=== PATIENT | female | born 1945 | race Caucasian/White ===

== ENCOUNTER 2016-06-19 08:42 | Emergency (ER) | payer MEDICARE, BC ==
[2016-06-19 08:59] VITALS: BP 149/71
--- NOTE | 2016-06-19 10:27 | UC ---
I, Tirso,Hank, scribed for Indu Marquez MD on 06/19/16 at 0957 . Skin Complaint HPI - HPI Summary HPI Summary: This 70 y/o female presents to [facility] for RUE upper arm laceration. Laceration occurred from "a stick sticking out" while pt was pruning her garden. Pt had it bandaged, but skin was torn off from the wound when pt took off bandage 2 days ago. Pt decided to come to Urgent Care today when she became concerned how the wound looked red, swollen, and draining. She rates discomfort 2/10. Negative fever. PMHx includes eosinophilic fasciitis for which she takes methotrexate and follows with a hospital technician in [place], Dr. Jacob, and glaucoma. Pt denies any hx of known MRSA. - History of Current Complaint Chief Complaint: UCWounds Stated Complaint: ARM WOUND Hx Obtained From: Patient Onset/Duration: Sudden Onset, Lasting Days, Still Present Skin Exposure Onset/Duration: Days Ago Timing: Constant Onset Severity: Moderate Current Severity: Moderate Pain Intensity: 2 Pain Scale Used: 0-10 Numeric Location: Other - right forearm Aggravating: Nothing Alleviating: Treatment SUPPORT ANALYST: - neosporin, bandaid Associated Signs & Symptoms: Positive: Drainage, Tenderness. Negative: Red Streaks, Joint Swelling - Allergy/Home Medications Allergies/Adverse Reactions: Allergies Allergy/AdvReac Type Severity Reaction Status Date / Time Scallops Allergy GI Upset Uncoded 06/19/16 08:59 Home Medications: Home Medications Acetazolamide 1 tab PO BID 06/19/16 [History Confirmed 06/19/16] Aspirin [Aspirin 81 MG TAB] 1 tab PO DAILY 06/19/16 [History Confirmed 06/19/16] Atorvastatin* [Lipitor 40 MG*] 1 tab PO DAILY 06/19/16 [History Confirmed ] Cetirizine HCl [Zyrtec Allergy 10 MG TAB] 1 tab PO DAILY 06/19/16 [History Confirmed 06/19/16] Diltiazem HCl [Dilt-Xr] 2 tab PO DAILY 06/19/16 [History Confirmed 06/19/16] Montelukast Sodium TAB* [Singulair 10 MG TAB*] 1 tab PO DAILY 06/19/16 [History Confirmed 06/19/16] Review of Systems Constitutional: Negative Skin: Other - Abrasion with erythema and drainage at RUE upper arm dorsal. Eyes: Negative ENT: Negative Respiratory: Negative Cardiovascular: Negative Gastrointestinal: Negative Genitourinary: Negative Motor: Negative Neurovascular: Negative Musculoskeletal: Negative Neurological: Negative Psychological: Negative All Other Systems Reviewed And Are Negative: Yes PMH/Surg Hx/FS Hx/Imm Hx Cardiovascular History Of: Reports: Hypertension - ON DAILY MEDS - Surgical History Surgical History: Yes Surgery Procedure, Year, and Place: YOUNG CHILDtonsilectomy. 1972 BILATERAL tubal CATIA. [address] [facility] [place]. 2009 RT EYE DETACHED RETINA NOEL. Bilateral eye Glaucoma surgery. Left eye Glaucoma valve. - Family History Known Family History: Positive: Cardiac Disease, Hypertension, Other - Crohn's dz to sister - Social History Alcohol Use: Daily Alcohol Amount: three times daily Substance Use Type: None Smoking Status (MU): Former Smoker Type: Cigarettes Amount Used/How Often: 1PPD 5 YRS Have You Smoked in the Last Year: No When Did the Patient Quit Smoking/Using Tobacco: 02/13/1968 - Immunization History Most Recent Tetanus Shot: Unknown Physical Exam Triage Information Reviewed: Yes Appearance: Well-Appearing, No Pain Distress Vital Signs: Initial Vital Signs Temp 97.5 F 06/19/16 08:50 Pulse 62 06/19/16 08:50 Resp 18 06/19/16 08:50 BP 149/71 06/19/16 08:50 Pulse Ox 97 06/19/16 08:50 Vital Signs Reviewed: Yes Eyes: Positive: Conjunctiva Clear ENT: Positive: Normal ENT inspection, Hearing grossly normal. Negative: Muffled /hoarse voice Neck: Positive: Supple Respiratory: Positive: Lungs clear, Normal breath sounds, No respiratory distress Cardiovascular: Positive: RRR, No Murmur, Pulses Normal, Brisk Capillary Refill Musculoskeletal: Positive: Strength Intact, ROM Intact Neurological: Positive: Alert, Muscle Tone Normal Psychological Exam: Normal Skin: Positive: Other - 0.5 original abrasion from "stick" on RUE dorsal forearm arm -- scabbed and dry. 7 cm of confluent erythema. 3cm abrasion within the erythema with sero sanguinous drainage. Course/Dx - Course Course Of Treatment: Allergies reviewed. Vital signs are reviewed and noted with elevated blood pressure of 149/71. PMHx does include HTN. - Differential Diagnoses - Skin Complaint Differential Diagnoses: Cellulitis, Contact Dermatitis, Lymphangitis - Diagnoses Provider Diagnoses: 1) Cellulitis with forearm abrasion 2) HTN under poor control Discharge - Discharge Plan Condition: Stable Disposition: HOME Prescriptions: Cephalexin CAP* [Keflex 500 CAP*] 500 mg PO QID #40 cap Patient Education Materials: Cellulitis (ED), Cephalexin (By mouth) Referrals: Erin Faulkner MD [Primary Care Provider] - 2 Days Additional Instructions: Return to urgent care if any new or worsening symptoms. The documentation as recorded by the Tirso hernandez Soohyun accurately reflects the service I personally performed and the decisions made by Jimmy sears Barbara J, MD.
== END 2016-06-19 10:00 | disposition home or self-care (01) ==
LOC: UCEAST 08:42
DX: L03.113 Cellulitis of right upper limb (principal); H40.9 Unspecified glaucoma; M35.4 Diffuse (eosinophilic) fasciitis; I10 Essential (primary) hypertension; Z91.013 Allergy to seafood; Z87.891 Personal history of nicotine dependence
CPT/HCPCS: 87070; 87077; 87186; 87205; 87640; 87641; 99212; G0463

== ENCOUNTER 2018-09-21 10:27 | Emergency (ER) | payer MEDICARE, BC ==
[2018-09-21 11:18] LABS: ABS Basophils 0.1 10^3/ul (0-0.2); ABS Eosinophils 0.3 10^3/ul (0-0.6); ABS Monocytes 0.7 10^3/ul (0-0.8); ABS Neutrophils 2.4 10^3/ul (1.5-7.7); Eosinophil % 5.3 %; Hematocrit 43 % (35-47); Hemoglobin 14.5 g/dL (12.0-16.0); Lymphocyte % 36.2 %; Mean Corpuscular HGB Conc 34 g/dL (31-36); Mean Corpuscular Hemoglobin 34 pg (27-31); Mean Corpuscular Volume 102 fL (80-97); Mean Platelet Volume 7.4 fL (7.4-10.4); Platelet Count 214 10^3/uL (150-450); Red Blood Count 4.25 10^6 /uL (3.70-4.87); Red Cell Distribution Width 15 % (10-15); White Blood Count 5.4 10^3/uL (3.5-10.8)
[2018-09-21 11:32] LABS: INR 0.9 (0.82-1.09)
[2018-09-21 11:35] LABS: Albumin 4.5 g/dL (3.2-5.2); Albumin/Globulin Ratio 1.7 (1-3); BUN/Creatinine Ratio 21.5 (8-20); Calcium 9.6 mg/dL (8.6-10.3); EGFR African American 108.1 (>60); EGFR Non-African American 89.3 (>60); Globulin 2.6 g/dL (2-4); Potassium 4.4 mmol/L (3.5-5.0); Total Bilirubin 0.3 mg/dL (0.2-1.0); Total Protein 7.1 g/dL (6.4-8.9)
--- NOTE | 2018-09-21 11:50 | ED ---
HPI Chest Pain - HPI Summary HPI Summary: This patient is a 73 year old F w hx HTN and HLD presenting to ED with a chief complaint of intermittent chest pressure since yesterday morning. The pressure went away yesterday but has since returned. The pressure started when she was getting out of bed. Denies exertional CP, SOB, hx OH or DVT/PE. The pressure radiates into the left arm above the elbow. Her left upper arm feels intermittently tingling and numb. She has had chest pain before, but not pressure. Patient follows up with a cutter and presser and had a negative echo in 2014 and also reports recent negative stress test. The patient rates the pain 0/ 10 in severity. Patient reported lightheadedness with her initial chest pain. - History of Current Complaint Chief Complaint: EDChestPainROMI Time Seen by Provider: 09/21/18 10:57 Hx Obtained From: Patient Onset/Duration: Started Days Ago - Yesterday , Still Present Timing: Intermittent Initial Severity: Mild Current Severity: Mild Pain Intensity: 0 Pain Scale Used: 0-10 Numeric Chest Pain Radiates: Yes Chest Pain Radiates To:: Arm - Left Character: Pressure/Squeezing Aggravating Factor(s): Nothing Alleviating Factor(s): Nothing Associated Signs and Symptoms: Positive: Lightheadedness, Other: - Left arm numbness/tingling - Allergy/Home Medications Allergies/Adverse Reactions: Allergies Allergy/AdvReac Type Severity Reaction Status Date / Time Scallops Allergy GI Upset Uncoded 06/19/16 08:59 Home Medications: Home Medications Leucovorin TAB* 5 mg PO WEEKLY 09/21/18 [History Confirmed 09/21/18] Sertraline* 50 mg PO DAILY 09/21/18 [History Confirmed 09/21/18] PMH/Surg Hx/FS Hx/Imm Hx Previously Healthy: No Cardiovascular History: Reports: Hx Hypercholesterolemia, Hx Hypertension - ON DAILY MEDS Denies: Hx Deep Vein Thrombosis, Hx Myocardial Infarction Respiratory History: Denies: Hx Pulmonary Embolism Musculoskeletal History: Reports: Hx Arthritis - HANDS Denies: Hx Osteoporosis Sensory History: Reports: Hx Cataracts - 2008, BILATERAL, Hx Contacts or Glasses - READING, Hx Glaucoma - BILATERAL Opthamlomology History: Reports: Hx Cataracts - 2008, BILATERAL, Hx Contacts or Glasses - READING, Hx Glaucoma - BILATERAL Neurological History: Reports: Other Neuro Impairments/Disorders - INFLAMMATION OF CONNECTIVE TISSUE - Surgical History Surgery Procedure, Year, and Place: YOUNG CHILDtonsilectomy. 1973 BILATERAL tubal CATIA. 2007 [place] [facility] [place] RT EYE DETACHED RETINA NOEL. Bilateral eye Glaucoma surgery. Left eye Glaucoma valve. Hx Anesthesia Reactions: No Infectious Disease History: No Infectious Disease History: Denies: Hx Clostridium Difficile, Hx Hepatitis, Hx Human Immunodeficiency Virus (HIV), Hx of Known/Suspected MRSA, Hx Shingles, Hx Tuberculosis, Hx Known/ Suspected VRE, Hx Known/Suspected VRSA, History Other Infectious Disease, Traveled Outside the [place] in Last 30 Days - Family History Known Family History: Positive: Cardiac Disease, Hypertension, Other - Crohn's dz to sister - Social History Alcohol Use: Daily Alcohol Amount: three times daily Hx Substance Use: No Substance Use Type: Reports: None Hx Tobacco Use: Yes Smoking Status (MU): Former Smoker Type: Cigarettes Amount Used/How Often: 1PPD 5 YRS Have You Smoked in the Last Year: No Review of Systems Positive: Chest Pain - Pressure Musculoskeletal: Other - Left arm numbness/tingling Neurological: Other - Lightheadedness All Other Systems Reviewed And Are Negative: Yes Physical Exam - Summary Physical Exam Summary: Constitutional: Well-developed, Well-nourished, Alert. (-) Distressed Skin: Warm, Dry HENT: Normocephalic; Atraumatic Eyes: Conjunctiva normal Neck: Musculoskeletal ROM normal neck. (-) JVD, (-) Stridor, (-) Nuchal rigidity Cardio: Rhythm regular, rate normal, Heart sounds normal; Intact distal pulses; Radial pulses are 2+ and symmetric. (-) Murmur Pulmonary/Chest wall: Effort normal. (-) Respiratory distress, (-) Wheezes, (-) Rales Abd: Soft, (-) tenderness, (-) Distension, (-) Guarding, (-) Rebound Musculoskeletal: paresthesia to the left lateral upper arm, no dermatomal distribution. Lymph: (-) Cervical adenopathy Neuro: Alert, Oriented x3 Psych: Mood and affect Normal Triage Information Reviewed: Yes Vital Signs On Initial Exam: Initial Vitals Temp Pulse Resp BP Pulse Ox 97.8 F 65 14 140/68 97 09/21/18 10:36 09/21/18 10:36 09/21/18 10:36 09/21/18 10:36 09/21/18 10:36 Vital Signs Reviewed: Yes Diagnostics - Vital Signs Vital Signs Temp Pulse Resp BP Pulse Ox 09/21/18 11:00 63 15 95 09/21/18 10:56 61 21 127/77 95 09/21/18 10:55 6 09/21/18 10:36 97.8 F 65 14 140/68 97 - Laboratory Lab Results: Lab Results 09/21/18 09/21/18 09/21/18 Range/Units 11:12 11:12 11:12 WBC 5.4 (3.5-10.8) 10^3/uL RBC 4.25 (3.70-4.87) 10^6 /uL Hgb 14.5 (12.0-16.0) g/dL Hct 43 (35-47) % MCV 102 H (80-97) fL MCH 34 H (27-31) pg MCHC 34 (31-36) g/dL RDW 15 (10-15) % Plt Count 214 (150-450) 10^3/uL MPV 7.4 (7.4-10.4) fL Neut % (Auto) 44.4 % Lymph % (Auto) 36.2 % [place] % (Auto) 12.9 % Eos % (Auto) 5.3 % Baso % (Auto) 1.2 % Absolute Neuts (auto) 2.4 (1.5-7.7) 10^3/ul Absolute Lymphs (auto) 2.0 (1.0-4.8) 10^3/ul Absolute Monos (auto) 0.7 (0-0.8) 10^3/ul Absolute Eos (auto) 0.3 (0-0.6) 10^3/ul Absolute Basos (auto) 0.1 (0-0.2) 10^3/ul Absolute Nucleated RBC 0.0 10^3/ul Nucleated RBC % 0.0 INR (Anticoag Therapy) 0.90 (0.82-1.09) Sodium 139 (135-145) mmol/L Potassium 4.4 (3.5-5.0) mmol/L Chloride 105 (101-111) mmol/L Carbon Dioxide 27 (22-32) mmol/L Anion Gap 7 (2-11) mmol/L BUN 14 (6-24) mg/dL Creatinine 0.65 (0.51-0.95) mg/dL Est GFR ( Amer) 108.1 (>60) Est GFR (Non-Af Amer) 89.3 (>60) BUN/Creatinine Ratio 21.5 H (8-20) Glucose 111 H (70-100) mg/dL Calcium 9.6 (8.6-10.3) mg/dL Total Bilirubin 0.30 (0.2-1.0) mg/dL AST 29 (13-39) U/L ALT 31 (7-52) U/L Alkaline Phosphatase 70 (34-104) U/L Troponin I 0.00 (<0.04) ng/mL Total Protein 7.1 (6.4-8.9) g/dL Albumin 4.5 (3.2-5.2) g/dL Globulin 2.6 (2-4) g/dL Albumin/Globulin Ratio 1.7 (1-3) Result Diagrams: 09/21/18 11:12 09/21/18 11:12 Lab Statement: Any lab studies that have been ordered have been reviewed, and results considered in the medical decision making process. - CT C/A/P CT Interpretation Completed By: Radiologist Summary of CT Findings: #. Negative for aneurysm or dissection of the thoracic aorta. #. Negative for pulmonary embolism. #. Potential pulmonary arterial hypertension. #. Normal diameter abdominal aorta and iliac arteries. Negative for arterial dissection. #. No acute abdominal pelvic pathologic process evident. Dr. Arias has reviewed this radiology report. - EKG 1038 Cardiac Rate: NL - 67 BPM EKG Rhythm: Sinus Rhythm EKG Comparison: No Significant Change Summary of EKG Findings: NSR at 67 BPM, prolonged MS interval, no significant change from 2008. Re-Evaluation - Re-Evaluation First Eval Re-Evaluation Time: 13:45 Comment: Discussed results with patient. Second Eval Re-Evaluation Time: 14:02 Comment: Discussed results with patient including neg CTA and trop x2. Patient will be discharged home with dx of CP and paresthesias. I explained to the patient that based on the work-up today, her risk of heart attack today is low and that he/she will be discharged with outpatient follow-up. Strict return precautions were discussed regarding worsening chest pain, new / atypical pain, shortness of breath, or any other serious concerns. Patient endorsed understanding and has no questions at this time. She will call her PCP Sunday. Chest Pain Course/Dx - Course Course Of Treatment: 78-year-old female with a history of hypertension, high cholesterol, who presents with left-sided chest pressure for 1 day. Patient reports recent neg stress and normal echo 2014. In our records: Echo 2004 w EF 60%, Neg stress test 2008. Chest Pain DDX: The patient is well appearing, with stable vitals (O2 95%). Consider: --Aortic dissection: check CTA given pressure and L arm parasthesias. --PE: mild hypoxia to 95%, check CTA for dissection, will be able to see large vessel PE. Although less likely, differential also includes the following: --Pneumothorax: Equal breath sounds, story inconsistent since gradual onset of symptoms. CXR shows no evidence of pneumothorax. Unlikely. --Cardiac tamponade: The history and physical are not concerning for tamponade. No Pulsus Paradoxus, no tachypnea. Unlikely. -- Mediastinitis or esophageal rupture: The history is not consistent, as the patient has had no recent history of significant wretching, instrumentation, or mediastinal surgeries. Unlikely. --ACS: The initial EKG shows no ischemic changes. The initial troponin is not elevated. - Diagnoses Provider Diagnoses: Chest pain, Paresthesia of arm Discharge - Sign-Out/Discharge Documenting (check all that apply): Patient Departure - Discharge Patient Received Moderate/Deep Sedation with Procedure: No - Discharge Plan Condition: Stable Disposition: HOME Patient Education Materials: Chest Pain (ED), Paresthesia (ED) Referrals: Erin Faulkner MD [Primary Care Provider] - Additional Instructions: You were seen in the emergency department for chest pain. Please follow up with your primary care doctor to schedule stress test in the next upcoming days. Your CT scan did not show any evidence of blood clots or aortic dissection. Your heart enzyme (troponin) was negative 2 If any studies were not completed at the time of discharge you will be called with the relevant results. Please follow up with your primary care doctor in next 2-3 days and return to emergency department for worsening or concerning symptoms. - Billing Disposition and Condition Condition: STABLE Disposition: Home - Attestation Statements Document Initiated by Scribe: Yes Documenting Scribe: Louis Casanova Provider For Whom Scribe is Documenting (Include Credential): Bravo Arias MD Scribe Attestation: I, Louis Casanova, scribed for Brvao Arias MD on 09/21/18 at 1410. Scribe Documentation Reviewed: Yes Provider Attestation: The documentation as recorded by the scribe, Louis Casaonva accurately reflects the service I personally performed and the decisions made by me, Bravo Arias MD Status of Scribe Document: Viewed
[2018-09-21] MEDS ORDERED: Iohexol 350* (CONTRAST) 500 ML MDV IV ONE (12:13)
[2018-09-21 12:28] VITALS: BP 130/71
--- OUTSIDE RECORDS SUMMARY | 2018-09-21 14:59 | XMS REPORT | Continuity of Care Document ---
:1945 External Reference #:[id number] Author Name Valery Vizcarra Care Team Providers Name Role Phone Erin Faulkner MD Care Team Information Qualified Craft Worker Electrician Unavailable Erin Faulkner MD Primary Care Physician Unavailable Payers Date Identification Numbers Payment Provider Subscriber Effective: 2010 Policy Number: [id number] Medicare Sherry Leaver PayID: [id number] [address] [place] [address] Effective: 2011 Policy Number: [id number] [facility] Sherry Leaver PayID: [id number] [address] [address] [place] [address] Problems Active Problems Provider Date Mitral valve disorder Oswaldo Madison M.D., MERGED WITH [facility], [facility] Onset: 12/01/2015 Family History Date Family Member(s) Observation Comments General Raynauds; sister had Crohn's and Thyroiditis runs in the family her daughter has mild lupus Father Heart Disease Mother Diabetes Social History Type Date Description Comments Sex Unknown Marital Status Lives With Cigarette Use Quit 40 Years Ago ETOH Use 12/01/2015 consumes 1-2 glasses of wine per week Tobacco Use Start: Unknown Patient has never smoked Smoking Status Reviewed: 09/09/18 Patient has never smoked Exercise Type/Frequency Exercises regularly Allergies, Adverse Reactions, Alerts Description No Known Drug Allergies Medications Active Medications SIG Qnty Indications Ordering Date Provider Leucovorin Calcium take 1 tablet by mouth 14tabs Javier Duncan, 2018 day 2 after taking M.D. 5mg Tablets methotrexate. Magic Mouthwash viscous lidocaine Javier Duncan, 08/05/2018 Equal 2%isaac M.D. Parts Of diphenhydramine 12.5 mg per 5 milliliters elixir 1 part betamethas0.025% gargle three times a day Methotrexate take 8 90tabs [facility], 06/24/2018 2.5mg capsules/tablets by M.D. Tablets mouth once weekly on Folic Acid take one 90tabs [facility], 06/24/2018 1mg capsule/tablet daily M.D. Tablets by mouth Humira inject 40 mg 6units [facility], 06/24/2018 40mg/0.8ML subcutaneous once M.D. PSKT every other week prefilled syringe Cartia XT 2 by mouth every day 90caps [facility] [place] 11/30/2015 180mg Caps Kishan Madison, ER 24HR FACC, FASEVONNE Atorvastatin Calcium 1 by mouth every day Unknown 40mg Tablets Cetirizine HCL 1 by mouth every day Unknown 10mg Tablets Azopt 1 drop in both eyes Unknown 1% Suspension twice daily Acetazolamide 1 by mouth twice a day Unknown 250mg Tablets Sertraline HCL Erin Faulkner 50mg MD Karma Tablets Lumigan Int 1 GTT Emily hs Utd Unknown 0.01% Solution History Medications Magic Mouthwash viscous lidocaine 120ml [facility], 08/05/2018 - Equal 2%isaac M.D. 08/05/2018 Parts Of diphenhydramine 12.5 mg per 5 milliliters elixir 1 part betamethas0.025% three times a day Timolol Maleate 1 drop each eye in the [facility] 11/30/2015 - 0.5% in the morning Kishan Madison, 06/24/2018 GFS FACC, FASEVONNE Timolol Maleate one drop both eyes every Unknown - 0.25% day in the morning 12/01/2015 Solution Montelukast Sodium 1 by mouth every day Unknown - 06/24/2018 10mg Tablets Cartia XT 1 by mouth every day Unknown - 300mg Caps 12/01/2015 ER 24HR Fish Oil 1 by mouth every day Unknown - 1200mg 11/30/[address] Vitamin B12 1 by mouth every day Unknown - 1000mcg 11/30/2015 Tablets ER Cinnamon 2 by mouth every day Unknown - 500mg 11/30/2015 Capsules Brimonidine Tartrate 1 drop right eye 3 times Unknown - daily 06/24/2018 0.2% Solution Pred Forte one drop to the left eye Unknown - 1% 3 x daily, right eye 06/24/2018 Suspension once daily Lumigan right eye once daily Unknown - 0.01% 06/24/2018 Solution Methotrexate take 8 capsules/tablets 90tabs Javier Duncan, - 2.5mg by mouth once weekly M.D. 06/24/2018 Tablets Folic Acid 1 by mouth every day Unknown - 1mg 06/24/2018 Tablets Immunizations CPT Code Status Date Vaccine Lot # 82049 Given 06/26/2014 Pneumococcal Conjugate Vaccine 13 Valent For Intramuscular Use [id number] Given 06/19/2011 Pneumonia Vaccine Vital Signs Date Vital Result Comment 09/09/2018 3:37pm Height 60.5 inches 5'0.50" Weight 158.00 lb Heart Rate 63 /min BP Systolic Sitting 132 mmHg BP Diastolic Sitting 78 mmHg Pain Level 5 O2 % BldC Oximetry 97 % BMI (Body Mass Index) 30.3 kg/m2 08/05/2018 3:28pm Height 60.5 inches 5'0.50" Weight 158.38 lb Heart Rate 86 /min BP Systolic Sitting 128 mmHg BP Diastolic Sitting 80 mmHg Pain Level 1 O2 % BldC Oximetry 97 % BMI (Body Mass Index) 30.4 kg/m2 06/24/2018 10:00am Height 60.5 inches 5'0.50" Weight 158.12 lb Heart Rate 71 /min BP Systolic Sitting 128 mmHg BP Diastolic Sitting 82 mmHg Pain Level 3 O2 % BldC Oximetry 97 % BMI (Body Mass Index) 30.4 kg/m2 12/01/2015 10:05am Height 60.5 inches 5'0.50" Weight 160.00 lb no shoes Heart Rate 76 /min BP Systolic Sitting 140 mmHg Lue reg cuff BP Diastolic Sitting 75 mmHg Lue reg cuff BP Systolic Standing 144 mmHg "" BP Diastolic Standing 80 mmHg "" Respiratory Rate 16 /min BMI (Body Mass Index) 30.7 kg/m2 Ejection Fraction 60-65% echo 11/17/15 Results Test Date Facility Test Result H/L Range Note Laboratory test 08/24/2018 [facility] Erythrocyte Sed 8 mm/Hr N 0-29 [address] [place] [address] [phone] C Reactive Protein 1.77 mg/L N <8.01 2 CBC Auto Diff 08/24/2018 [facility] White Blood 4.6 10^3/uL N 3.5-10.[address] [place] [address] [phone] Red Blood Count 4.21 10^6/uL N 3.70-4.87 Hemoglobin 14.2 g/dL N 12.0-16.0 Hematocrit 43 % N 35-47 Mean Corpuscular Volume 102 fL High 80-97 Mean Corpuscular Hemoglobin 34 pg High 27-31 Mean Corpuscular HGB Conc 33 g/dL N 31-36 Red Cell Distribution Width 14 % N 10-15 Platelet Count 231 10^3/uL N 150-450 Mean Platelet Volume 8.2 fL N 7.4-10.4 Abs Neutrophils 2.1 10^3/uL N 1.5-7.7 Abs Lymphocytes 1.3 10^3/uL N 1.0-4.8 Abs Monocytes 0.8 10^3/uL N 0-0.8 Abs Eosinophils 0.3 10^3/uL N 0-0.6 Abs Basophils 0.0 10^3/uL N 0-0.2 Abs Nucleated RBC 0.0 10^3/uL Granulocyte % 46.2 % Lymphocyte % 28.7 % Monocyte % 17.4 % Eosinophil % 6.8 % Basophil % 0.9 % Nucleated Red Blood Cells % 0.2 Comp Metabolic Panel 08/24/2018 [facility] Sodium 140 mmol/L N 135-[address] [place] [address] [phone] Potassium 4.7 mmol/L N 3.5-5.0 Chloride 108 mmol/L N 101-111 Co2 Carbon Dioxide 24 mmol/L N 22-32 Anion Gap 8 mmol/L N 2-11 Glucose 96 mg/dL N 70-100 Blood Urea Nitrogen 17 mg/dL N 6-24 Creatinine 0.70 mg/dL N 0.51-0.95 BUN/Creatinine Ratio 24.3 High 8-20 Calcium 9.7 mg/dL N 8.6-10.3 Total Protein 7.1 g/dL N 6.4-8.9 Albumin 4.6 g/dL N 3.2-5.2 Globulin 2.5 g/dL N 2-4 Albumin/Globulin Ratio 1.8 N 1-3 Total Bilirubin 0.40 mg/dL N 0.2-1.0 Alkaline Phosphatase 79 U/L N 34-104 Alt 26 U/L N 7-52 Ast 26 U/L N 13-39 Egfr Non- 82.0 >60 Egfr 99.2 >60 3 Connective Tissue 06/24/2018 [facility] Anti-Nuclear Antibody 0.4 U 4 Panel [address] [place] [address] [phone] Cyclic Citrullinated Peptide 34.8 U Abnormal 5 Interpretation See Comment 6 Scleroderma AB 06/24/2018 [facility] Scleroderma Ab <0.2 U 7 (SCL70) [address] [place] [address] [phone] Laboratory test 06/24/2018 [facility] Creatine 51 U/L N 10- 223 8 finding 101 [facility] Kinase(CK) [place] [address] [phone] Thyroperoxidase AB 0.51 IU/mL N <9 9 Rheumatoid Factor < 10 IU/mL N <15 10 Erythrocyte Sed Rate 16 mm/Hr N 0-29 11 C Reactive Protein 4.58 mg/L N <8.01 12 Anca AB Ser If 06/24/2018 [facility] C-Anca Negative Negative [address] [place] [address] [phone] P-Anca Negative Negative 13 CBC Auto Diff 06/24/2018 [facility] White Blood 5.0 10^3/uL N 3.5-10.[address] [place] [address] [phone] Red Blood Count 4.40 10^6/uL N 3.70-4.87 Hemoglobin 14.9 g/dL N 12.0-16.0 Hematocrit 45 % N 35-47 Mean Corpuscular Volume 102 fL High 80-97 Mean Corpuscular Hemoglobin 34 pg High 27-31 Mean Corpuscular HGB Conc 33 g/dL N 31-36 Red Cell Distribution Width 14 % N 10.5-15 Platelet Count 250 10^3/uL N 150-450 Mean Platelet Volume 8.2 fL N 7.4-10.4 Abs Neutrophils 2.7 10^3/uL N 1.5-7.7 Abs Lymphocytes 1.4 10^3/uL N 1.0-4.8 Abs Monocytes 0.5 10^3/uL N 0-0.8 Abs Eosinophils 0.3 10^3/uL N 0-0.6 Abs Basophils 0.1 10^3/uL N 0-0.2 Abs Nucleated RBC 0.0 10^3/uL Granulocyte % 53.1 % Lymphocyte % 28.1 % Monocyte % 10.6 % Eosinophil % 6.7 % Basophil % 1.5 % Nucleated Red Blood Cells % 0.3 Comp Metabolic Panel 06/24/2018 [facility] Sodium 138 mmol/L N 135-[address] [place] [address] [phone] Potassium 3.6 mmol/L N 3.5-5.0 Chloride 105 mmol/L N 101-111 Co2 Carbon Dioxide 24 mmol/L N 22-32 Anion Gap 9 mmol/L N 2-11 Glucose 118 mg/dL High 70-100 Blood Urea Nitrogen 14 mg/dL N 6-24 Creatinine 0.59 mg/dL N 0.51-0.95 BUN/Creatinine Ratio 23.7 High 8-20 Calcium 9.8 mg/dL N 8.6-10.3 Total Protein 7.4 g/dL N 6.4-8.9 Albumin 4.7 g/dL N 3.2-5.2 Globulin 2.7 g/dL N 2-4 Albumin/Globulin Ratio 1.7 N 1-3 Total Bilirubin 0.50 mg/dL N 0.2-1.0 Alkaline Phosphatase 84 U/L N 34-104 Alt 24 U/L N 7-52 Ast 24 U/L N 13-39 Egfr Non- 100.2 >60 Egfr 121.2 >60 14 Quantiferon 06/24/2018 [facility] QuantiFERON-Tb Negative Negative 15 Gold TB [address] [place] [address] [phone] TB1 Ag minus Nil Result 0.01 IU/mL TB2 Ag minus Nil Result 0.01 IU/mL TB Mitogen minus Nil Result > 10.00 IU/mL TB Nil Result 0.05 IU/mL 16 1 Please check labs on August 24, 2018 2 Please check labs on August 24, 2018 3 Because ethnic data is not always readily available, this report includes an eGFR for both -Americans and non- Americans. The National Kidney Disease Education Program (NKDEP) does not endorse the use of the MDRD equation for patients that are not between the ages of 18 and 70, are , have extremes of body size, muscle mass, or nutritional status, or are non- or non-. According to the National Kidney Foundation, irrespective of diagnosis, the stage of the disease is based on the level of kidney function: Stage Description GFR(mL/min/1.73 m(2)) 1 Kidney damage with normal or decreased GFR 90 2 Kidney damage with mild decrease in GFR 60-89 3 Moderate decrease in GFR 30-59 4 Severe decrease in GFR 15-29 5 Kidney failure <15 (or dialysis) 4 REFERENCE VALUE <=1.0 (Negative) 5 Interpretation: Weak Positive (20.0-39.9) REFERENCE VALUE <20.0 (Negative) 6 RESULT: Compatible with rheumatoid arthritis. Test Performed by: [facility] [place] [address] 7 REFERENCE VALUE <1.0 (Negative) Test Performed by: [facility] [place] [address] 8 Please check labs this week 9 Please check labs this week 10 Please check labs this week 11 Please check labs this week 12 Please check labs this week 13 Negative for cANCA and pANCA patterns by immunofluorescence. ADDITIONAL INFORMATION This test was developed and its performance characteristics determined by [facility] in a manner consistent with CLIA requirements. This test has not been cleared or approved by the U.S. Food and Drug Administration. Test Performed by: [address] [address] 14 Because ethnic data is not always readily available, this report includes an eGFR for both -Americans and non- Americans. The National Kidney Disease Education Program (NKDEP) does not endorse the use of the MDRD equation for patients that are not between the ages of 18 and 70, are , have extremes of body size, muscle mass, or nutritional status, or are non- or non-. According to the National Kidney Foundation, irrespective of diagnosis, the stage of the disease is based on the level of kidney function: Stage Description GFR(mL/min/1.73 m(2)) 1 Kidney damage with normal or decreased GFR 90 2 Kidney damage with mild decrease in GFR 60-89 3 Moderate decrease in GFR 30-59 4 Severe decrease in GFR 15-29 5 Kidney failure <15 (or dialysis) 15 No interferon-gamma response to M. tuberculosis antigens was detected. Infection with M. tuberculosis is unlikely. A single negative result does not exclude infection with M. tuberculosis. In patients at high risk for M.tuberculosis infection, a second test should be considered in accordance with the 2017 ATS/IDSA/CDC Clinical Practice Guidelines for Diagnosis of Tuberculosis in Adults and Children [Markelinsvenusn AGNIESZKA et. al. Clin. Infect. Dis. 2017;64(2):111-115]. The reference range for the 'TB1 Ag minus Nil Result' and 'TB2 Ag minus Nil Result' is an Interferon-gamma level <0.35 IU/mL. 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 at [facility]09/09/2018 - Javier Duncan M.D.M06.09 Rheumatoid arthritis without rheumatoid factor, multiple sitFollow up:Follow up in 3 months or sooner if [id number] Diffuse (eosinophilic) [id number] Other alf ( current) drug [id number] Unspecified iridocyclitis
--- OUTSIDE RECORDS SUMMARY | 2018-09-21 14:59 | XMS REPORT | Continuity of Care Document ---
:1945 External Reference #:[id number] Author Name Scott Haji MD Address [address] [facility] [place] [address] Care Team Providers Name Role Phone Erin Faulkner MD Primary Care Physician Unavailable Payers Date Identification Numbers Payment Provider Subscriber Policy Number: [id number] Medicare Part B Sherry Watson Leaver PayID: [id number] [address] [place] [address] Policy Number: [id number] [facility] Sherry Watson Leaver PayID: [id number] [address] [address] [place] [address] Problems Active Problems Provider Date Primary open angle glaucoma Matheus Fish MD Onset: 06/28/2017 Essential hypertension Matheus Fish MD Onset: 06/28/2017 Hypercholesterolemia Matheus Fish MD Onset: 06/28/2017 Rheumatoid arthritis Scott Haji MD Onset: 09/10/2018 Family History Date Family Member(s) Observation Comments Father Cataract Mother Diabetes Paternal Grandfather Heart Disease Social History Type Date Description Comments Sex Unknown ETOH Use Frequent alcohol use Tobacco Use Start: Unknown End: Unknown Patient is a former smoker Smoking Status Reviewed: 09/09/18 Patient is a former smoker Allergies, Adverse Reactions, Alerts Active Allergies Reaction Severity Comments Date Scallops 06/28/2017 Seasonal 08/27/2017 Medications Active Medications SIG Qnty Indications Ordering Provider Date Valacyclovir HCL 1 tab by mouth 3 90tabs B00.52 Carlos Brown 08/26/2018 times a day DeVincentis III 1gm Tablets Lotemax 1 drop into both 10ml Matheus Mackay 05/14/2018 0.5% eyes 3 times a Abe LUKE Suspension day. Use in place of Prednisolone Combigan Instill 1 Drop In 20ml H40.1123 Scott Haji, 08/28/2017 0.2-0.5% Both Eyes Twice MD Solution Daily Pushes 4/4 H40.1123 Matheus Mackay 06/28/2017 Abe LUKE Lumigan Instill 1 Drop 7.5units H40.1123 Carlos F 06/28/2017 0.01% Into Left Eye AT DeVincentis III Solution Bedtime as MD Directed Acetazolamide Take 1 Tablet By 180tabs H40.1123 Scott Haji, 2017 250mg Mouth Twice Daily MD Tablets Azopt Shake Liquid And 10units H40.1123 Matheus Mackay 05/15/2017 1% Suspension Instill 1 Drop In Abe LUKE Left Eye Three Times Daily as Directed Leucovorin Calcium TK 1 T PO On Day 2 Unknown After Taking 5mg Tablets Methotrexate Humira Unknown 40mg/0.8ML PSKT Sertraline HCL Unknown 50mg Tablets Diltiazem HCL ER TK 2 CS PO qd Unknown Coated Beads 180mg Caps ER 24HR Hydrocodone-Acetami TK 1 T PO Q 4 To 6 Unknown nophen H prn P - MDD 6 TS 5-325mg Tablets Proair HFA Unknown 108(90Base) mcg/Act Aerosol Methotrexate TK 8 TS PO Once Unknown 2.5mg Weekly Tablets Folic Acid TK 1 T PO qd Unknown 1mg Tablets Cartia XT TK 2 CS PO qd Unknown 180mg Caps ER 24HR Atorvastatin TK 1 T PO qd Unknown Calcium 40mg Tablets Montelukast Sodium TK 1 T PO QHS Unknown 10mg Tablets SF 5000 Plus U Utd Unknown 1.1% Cream History Medications Prednisolone Acetate Instill 1 Drop 15units H20.9 Matheus Mackay 04/24/2018 - Into Both Eyes Abe LUKE 07/02/2018 1% Suspension Three Times Daily Pred Forte 1 drop both 15ml H20.9 Matheus Mackay 10/08/2017 - 1% eyes three x a Abe LUKE 04/24/2018 Suspension day Azopt Shake Liquid 10units H40.1123 Matheus S 06/28/2017 - 1% Suspension And Instill 1 Abe LUKE 12/10/2017 Drop In Right Eye Three Times Daily as Directed Azopt Shake Liquid 10units H40.1123 Matheus S 06/28/2017 - 1% Suspension And Instill 1 Abe LUKE 12/10/2017 Drop In Right Eye Three Times Daily as Directed Timolol Maleate Instill 1 Drop 15units H40.1123 Matheus 06/28/2017 - 0.5% Into Both Eyes Abe LUKE 08/28/2017 Solution Twice A Day as Directed Ketorolac instill one 5ml H35.351 Matheus 06/28/2017 - Tromethamine drop into the Abe LUKE 07/02/2018 0.4% right eye 4 Solution times a day Acetazolamide Take One Tablet 180tabs Matheus 06/08/2017 - 250mg By Mouth Twice Abe LUKE 12/10/2017 Tablets Daily Timolol Maleate Instill 1 Drop 15units Matheus 05/15/2017 - 0.5% Into Both Eyes Abe LUKE 12/10/2017 Solution Twice A Day as Directed Prednisolone Acetate Shake Well And Unknown - Instill 1 Drop 12/10/2017 1% Suspension In Both Eyes bid Brimonidine Tartrate Instill 1 Drop Unknown - In The Right 12/10/2017 0.2% Solution Eye tid as Directed Prednisone Unknown - 20mg 08/26/2018 Tablets Neomycin/Polymyxin/D Unknown - examethasone 08/26/2018 3.5-17375-2.1 Suspension Lumigan Int 1 GTT Into Unknown - 0.01% OS hs Utd 12/10/2017 Solution Hydrocodone-Acetamin Unknown - ophen 12/10/2017 5-325mg Tablets Amoxicillin TK 1 C PO tid Unknown - 500mg 08/26/2018 Capsules Amoxicillin Unknown - 500mg 12/10/2017 Capsules Prednisolone Acetate Instill 1 GTT Unknown - In Right Eye 12/10/2017 1% Suspension qid And 1 GTT In Left Eye bid. Shake Well Acyclovir Unknown - 800mg 08/26/2018 Tablets Azithromycin Unknown - 500mg 08/26/2018 Tablets Diltiazem HCL ER Unknown - Coated Beads 12/10/2017 180mg Caps ER 24HR Methotrexate Unknown - 2.5mg 12/10/2017 Tablets Folic Acid Unknown - 1mg 12/10/2017 Tablets Cartia XT Unknown - 180mg Caps 12/10/2017 ER 24HR Atorvastatin Calcium Unknown - 12/10/2017 40mg Tablets Montelukast Sodium Unknown - 12/10/2017 10mg Tablets SF 5000 Plus Unknown - 1.1% 12/10/2017 Cream Vital Signs Date Vital Result Comment 09/10/2018 7:57am Intraocular Pressure Right Eye 12 mmHg Ap 07:58 Am Intraocular Pressure Left Eye 13 mmHg Ap 07:58 Am Recheck IOP Right Eye 10 MDM Ap 08:26 Am Recheck IOP Left Eye 12 MDM 09/03/2018 2:00pm Intraocular Pressure Right Eye 20 mmHg Ap Intraocular Pressure Left Eye 26 mmHg Ap 02:01 PM 08/26/2018 1:54pm Intraocular Pressure Right Eye 22 mmHg Ap Intraocular Pressure Left Eye 22 mmHg Ap 01:54 PM 07/02/2018 10:56am Intraocular Pressure Right Eye 16 mmHg Ap Intraocular Pressure Left Eye 18 mmHg Ap 10:56 Am Recheck IOP Right Eye 13p Recheck IOP Left Eye 15p 12/11/2017 8:29am Intraocular Pressure Right Eye 15 mmHg Ap Intraocular Pressure Left Eye 19 mmHg Ap 08:30 Am Recheck IOP Left Eye 15-16p 10/08/2017 12:42pm Intraocular Pressure Right Eye 15 mmHg Intraocular Pressure Left Eye 15 mmHg 12:42 PM 08/28/2017 7:23am Intraocular Pressure Right Eye 17 mmHg Ta Intraocular Pressure Left Eye 17 mmHg Ta 06/28/2017 11:05am Intraocular Pressure Right Eye 14 mmHg Ta Intraocular Pressure Left Eye 14 mmHg Ta Cornea Thickness Left Eye 587 m Cornea Thickness Right Eye 594 m 12/28/2016 8:50am Intraocular Pressure Right Eye 11 mmHg Intraocular Pressure Left Eye 17 mmHg Recheck IOP Left Eye 12 Cornea Thickness Left Eye 587 m Cornea Thickness Right Eye 594 m Procedures Date Code Description Status 08/26/2018 79029 Exam, Intermediate Est PT Completed 07/02/2018 67861 Scan Computer Diag Imag W/Report Optic Nerve Completed 07/02/2018 30076 Vis Field W/Med Diag;Ext,Gideon Per Completed 07/02/2018 04752 Exam, Comprehensive, Est PT Completed 08/28/2017 81535 Scan Computer Diag Imag W/Report,Retina Completed 08/28/2017 95675 Exam, Intermediate Est PT Completed 06/28/2017 06262 Scan Computer Diag Imag W/Report Optic Nerve Completed 06/28/2017 55702 Vis Field W/Med Diag;Ext,Gideon Per Completed 06/28/2017 11604 Exam, Comprehensive, Est PT Completed 12/28/2016 52390 Scan Computer Diag Imag W/Report Optic Nerve Completed 12/28/2016 92285 Vis Field W/Med Diag;Ext,Gideon Per Completed 12/28/2016 15256 Exam, Comprehensive, Est PT Completed 09/14/2016 64215 Ophthalmic Ultrasound; B Scan Completed 09/11/2016 02950 Aqueous Shunt Extraocular Reservr Completed 08/08/2016 44178 Gonioscopy W/Med Diag Eval Completed 07/20/2016 57426 Scan Computer Diag Imag W/Report Optic Nerve Completed 07/20/2016 65995 Vis Field W/Med Diag;Ext,Gideon Per Completed 07/20/2016 12582 Exam, Comprehensive, Est PT Completed 12/09/2015 52801 Scan Computer Diag Imag W/Report Optic Nerve Completed 12/09/2015 22479 Vis Field W/Med Diag;Ext,Gideon Per Completed 12/09/2015 45238 Exam, Comprehensive, Est PT Completed 08/30/2015 54523 Aqueous Shunt Extraocular Reservr Completed 08/09/2015 70817 Vis Field W/Med Diag;Ext,Gideon Per Completed 08/09/2015 65858 Exam, Comprehensive, Est PT Completed 07/23/2015 93086 Scan Computer Diag Imag W/Report Optic Nerve Completed 07/23/2015 76427 Vis Field W/Med Diag;Ext,Gideon Per Completed 07/23/2015 78280 Gonioscopy W/Med Diag Eval Completed 07/23/2015 67423 Exam Comprehensive, New PT Completed 07/23/2015 29028 Cornea Pachymetry, Unilat/Bilat Completed Encounters Type Date Location Provider Dx Diagnosis Office Visit 09/03/2018 Main Office Nicholas Bajwa 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 Primary open-angle glaucoma, left eye, severe stage H40.1112 Primary open-angle glaucoma, right eye, moderate stage Office Visit 12/11/2017 8:15a Main Office Matheus Mackay H20.9 Unspecified Abe LUKE iridocyclitis H40.1123 Primary open-angle glaucoma, left eye, severe stage H40.1112 Primary open-angle glaucoma, right eye, moderate stage Office Visit 10/08/2017 10:30a Main Office Matheus Mackay H20.9 Unspecified Abe LUKE iridocyclitis H40.1123 Primary open-angle glaucoma, left eye, severe stage H40.1112 Primary open-angle glaucoma, right eye, moderate stage 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, bilateral Office Visit 08/29/2016 2:30p Main Office Matheus Mackay H40.1112 Primary Abe LUKE open-angle glaucoma, right eye, moderate stage H40.1123 Primary open-angle glaucoma, left eye, severe stage 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 Office Visit 08/08/2016 10:15a Main Office Matheus Mackay H40.1112 Primary Abe LUKE open-angle glaucoma, right eye, moderate stage H40.1123 Primary open-angle glaucoma, left eye, severe stage 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 Office Visit 12/22/2015 10:30a Main Office Matheus Mackay H40.1112 Primary Abe LUKE open-angle glaucoma, right eye, moderate stage H40.1123 Primary open-angle glaucoma, left eye, severe stage Plan of Treatment Future Appointment(s):10/09/2018 9:15 am - Scott Haji MD at [id number] - Scott Haji MDB00.52 Herpesviral [id number] Primary open- angle glaucoma, bilateral, moderate qhgohB77.9 Unspecified iridocyclitisComments :Continue medication as directedTake azopt from 3/3 to 2/2 a dayTake lumigan from 0/HS to HS/HSTake Valacyclovir 500 MG a day Take combigan 2/2Take Lotemax 3 /3Continue Pushes 4/4Stop DiamoxFollow up:RTC 1 month dil/IOP check
--- OUTSIDE RECORDS SUMMARY | 2018-09-21 15:00 | XMS REPORT | Continuity of Care Document ---
:1945 External Reference #:[id number] Author Name Carlos Stinson III, MD Address [address] [facility] [place] [address] Care Team Providers Name Role Phone Erin Faulkner MD Primary Care Physician Unavailable Payers Date Identification Numbers Payment Provider Subscriber Policy Number: [id number] Medicare Part B Sherry Watson Leaver PayID: [id number] [address] [place] [address] Policy Number: [id number] [facility] Sherry Watson Leaver PayID: [id number] [address] [address] [place] [address] Problems Active Problems Provider Date Primary open angle glaucoma Matheus Fish MD Onset: 06/28/2017 Essential hypertension Matheus Fish MD Onset: 06/28/2017 Hypercholesterolemia Matheus Fish MD Onset: 06/28/2017 Family History Date Family Member(s) Observation Comments Father Cataract Mother Diabetes Paternal Grandfather Heart Disease Social History Type Date Description Comments Sex Unknown ETOH Use Frequent alcohol use Tobacco Use Start: Unknown End: Unknown Patient is a former smoker Smoking Status Reviewed: 08/26/18 Patient is a former smoker Allergies, Adverse Reactions, Alerts Active Allergies Reaction Severity Comments Date Scallops 06/28/2017 Seasonal 08/27/2017 Medications Active Medications SIG Qnty Indications Ordering Provider Date Valacyclovir HCL 1 tab by mouth 3 90tabs B00.52 Carlos Brown 08/26/2018 times a day Rosalindaentis III 1gm Tablets Lotemax 1 drop into both 10ml Matheus Mackay 05/14/2018 0.5% eyes 3 times a Abe LUKE Suspension day. Use in place of Prednisolone Combigan Instill 1 Drop In 20ml H40.1123 Scott Andrés Adithya, 08/28/2017 0.2-0.5% Both Eyes Twice MD Solution Daily Pushes 4/4 H40.1123 Matheus Mackay 06/28/2017 Abe Sanab[place] Instill 1 Drop 7.5units H40.1123 Carlos F 06/28/2017 0.01% Into Left Eye AT Devincentis III Solution Bedtime as MD Directed Acetazolamide Take 1 Tablet By 180tabs H40.1123 Matheus S 06/28/2017 250mg Mouth Twice Daily Abe LUKE Tablets Azopt Shake Liquid And 10units H40.1123 Matheus Mackay 05/15/2017 1% Suspension Instill 1 Drop In Abe LUKE Right Eye Three Times Daily as Directed Leucovorin [...] 06/28/2017 - 1% Suspension And Instill 1 bAe LUKE 12/10/2017 Drop In Right Eye Three Times Daily as Directed Azopt Shake Liquid 10units H40.1123 Matheus S 06/28/2017 - 1% Suspension And Instill 1 Abe LUKE 12/10/2017 Drop In Right Eye Three Times Daily as Directed Timolol Maleate Instill 1 Drop 15units H40.1123 Matheus S 06/28/2017 - 0.5% Into Both Eyes Abe LUKE 08/28/2017 Solution Twice A Day as Directed Ketorolac instill one 5ml H35.351 Matheus Mackay 06/28/2017 - Tromethamine drop into the Abe LUKE 07/02/2018 0.4% right eye 4 Solution times a day Acetazolamide Take One Tablet 180tabs Matheus Mackay 06/08/2017 - 250mg By Mouth Twice Abe LUKE 12/10/2017 Tablets Daily Timolol Maleate Instill 1 Drop 15units Matheus Thompson 05/15/2017 - 0.5% Into Both Eyes Abe LUKE 12/10/2017 Solution Twice A Day as Directed Prednisolone Acetate Shake Well And Unknown - Instill 1 Drop 12/10/2017 1% Suspension In Both Eyes bid Brimonidine Tartrate Instill 1 Drop Unknown - In The Right 12/10/2017 0.2% Solution Eye tid as Directed Prednisone Unknown - 20mg 08/26/2018 Tablets Neomycin/Polymyxin/D Unknown - examethasone 08/26/2018 3.5-42377-2.1 Suspension Lumigan Int 1 GTT Into Unknown [...] Cream Vital Signs Date Vital Result Comment 08/26/2018 1:54pm Intraocular Pressure Right Eye 22 [...] m Procedures Date Code Description Status 08/26/2018 14269 Exam, Intermediate Est PT Completed 07/02/2018 02855 Scan Computer Diag Imag W/Report Optic Nerve Completed 07/02/2018 09793 Vis Field W/Med Diag;Ext,Gideon Per Completed 07/02/2018 41772 Exam, Comprehensive, Est PT Completed 08/28/2017 52616 Scan Computer Diag Imag W/Report,Retina Completed 08/28/2017 11404 Exam, Intermediate Est PT Completed 06/28/2017 28103 Scan Computer Diag Imag W/Report Optic Nerve Completed 06/28/2017 88990 Vis Field W/Med Diag;Ext,Gideon Per Completed 06/28/2017 80731 Exam, Comprehensive, Est PT Completed 12/28/2016 27368 Scan Computer Diag Imag W/Report Optic Nerve Completed 12/28/2016 55017 Vis Field W/Med Diag;Ext,Gideon Per Completed 12/28/2016 43730 Exam, Comprehensive, Est PT Completed 09/14/2016 28453 Ophthalmic Ultrasound; B Scan Completed 09/11/2016 44168 Aqueous Shunt Extraocular Reservr Completed 08/08/2016 94214 Gonioscopy W/Med Diag Eval Completed 07/20/2016 78082 Scan Computer Diag Imag W/Report Optic Nerve Completed 07/20/2016 32723 Vis Field W/Med Diag;Ext,Gideon Per Completed 07/20/2016 11558 Exam, Comprehensive, Est PT Completed 12/09/2015 09144 Scan Computer Diag Imag W/Report Optic Nerve Completed 12/09/2015 29528 Vis Field W/Med Diag;Ext,Gideon Per Completed 12/09/2015 27513 Exam, Comprehensive, Est PT Completed 08/30/2015 78507 Aqueous Shunt Extraocular Reservr Completed 08/09/2015 98553 Vis Field W/Med Diag;Ext,Gideon Per Completed 08/09/2015 19637 Exam, Comprehensive, Est PT Completed 07/23/2015 62124 Scan Computer Diag Imag W/Report Optic Nerve Completed 07/23/2015 27426 Vis Field W/Med Diag;Ext,Gideon Per Completed 07/23/2015 27434 Gonioscopy W/Med Diag Eval Completed 07/23/2015 58116 Exam Comprehensive, New PT Completed 07/23/2015 58675 Cornea Pachymetry, Unilat/Bilat Completed Encounters Type Date Location Provider Dx Diagnosis Office Visit 12/11/2017 Main Office Matheus Mackay 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
--- OUTSIDE RECORDS SUMMARY | 2018-09-21 15:00 | XMS REPORT | Continuity of Care Document ---
:1945 External Reference #:[id number] Author Name Nicholas Bajwa MD Address [address] [facility] [place] [address] Care Team Providers Name Role Phone Erin Faulkner MD Primary Care Physician Unavailable Payers Date Identification Numbers Payment Provider Subscriber Policy Number: [id number] Medicare Part B Sherry Watson Leaver PayID: [id number] [address] [place] [address] Policy Number: [id number] [facility] Sherry Watson Leaver PayID: [id number] [address] [address] [place] [address] Problems Active Problems Provider Date Primary open [...] is a former smoker Smoking Status Reviewed: 09/03/18 Patient is a former smoker Allergies, Adverse Reactions, Alerts Active Allergies Reaction Severity Comments Date Scallops 06/28/2017 Seasonal 08/27/2017 Medications Active Medications SIG Qnty Indications Ordering Provider Date Valacyclovir HCL 1 tab by mouth 3 90tabs B00.52 Carlos Brown 08/26/2018 times a day Devincentis III 1gm Tablets Lotemax 1 drop into both 10ml Matheus Mackay 05/14/2018 0.5% eyes 3 times a Abe LUKE Suspension day. Use in place of Prednisolone Combigan Instill 1 Drop In 20ml H40.1123 Scott Haji, 08/28/2017 0.2-0.5% Both Eyes Twice MD Solution Daily Pushes 4/4 H40.1123 Matheus Mackay 06/28/2017 Abe LUKE Lumhomar Instill 1 Drop 7.5units H40.1123 Carlos F [...] day Azopt Shake Liquid 10units H40.1123 Matheus Mackay 06/28/2017 - 1% Suspension And Instill 1 [...] Directed Ketorolac instill one 5ml H35.351 Matheus Thompson 06/28/2017 - Tromethamine drop into the Abe LUKE 07/02/2018 0.4% right eye 4 Solution times a day Acetazolamide Take One Tablet 180tabs Matheus Mackay 06/08/2017 - 250mg By Mouth Twice bAe LUKE 12/10/2017 Tablets Daily Timolol Maleate Instill [...] 08/26/2018 Tablets Neomycin/Polymyxin/D Unknown - examethasone 08/26/2018 3.5-66362-4.1 Suspension Lumigan Int 1 GTT Into Unknown [...] Cream Vital Signs Date Vital Result Comment 09/03/2018 2:00pm Intraocular Pressure Right Eye 20 [...] m Procedures Date Code Description Status 08/26/2018 45621 Exam, Intermediate Est PT Completed 07/02/2018 86140 Scan Computer Diag Imag W/Report Optic Nerve Completed 07/02/2018 45357 Vis Field W/Med Diag;Ext,Gideon Per Completed 07/02/2018 13374 Exam, Comprehensive, Est PT Completed 08/28/2017 97860 Scan Computer Diag Imag W/Report,Retina Completed 08/28/2017 48316 Exam, Intermediate Est PT Completed 06/28/2017 04018 Scan Computer Diag Imag W/Report Optic Nerve Completed 06/28/2017 38826 Vis Field W/Med Diag;Ext,Gideon Per Completed 06/28/2017 93830 Exam, Comprehensive, Est PT Completed 12/28/2016 14967 Scan Computer Diag Imag W/Report Optic Nerve Completed 12/28/2016 94372 Vis Field W/Med Diag;Ext,Gideon Per Completed 12/28/2016 30551 Exam, Comprehensive, Est PT Completed 09/14/2016 88284 Ophthalmic Ultrasound; B Scan Completed 09/11/2016 25117 Aqueous Shunt Extraocular Reservr Completed 08/08/2016 45888 Gonioscopy W/Med Diag Eval Completed 07/20/2016 26859 Scan Computer Diag Imag W/Report Optic Nerve Completed 07/20/2016 46738 Vis Field W/Med Diag;Ext,Gideon Per Completed 07/20/2016 81395 Exam, Comprehensive, Est PT Completed 12/09/2015 74041 Scan Computer Diag Imag W/Report Optic Nerve Completed 12/09/2015 56548 Vis Field W/Med Diag;Ext,Gideon Per Completed 12/09/2015 95254 Exam, Comprehensive, Est PT Completed 08/30/2015 28830 Aqueous Shunt Extraocular Reservr Completed 08/09/2015 54150 Vis Field W/Med Diag;Ext,Gideon Per Completed 08/09/2015 71057 Exam, Comprehensive, Est PT Completed 07/23/2015 88955 Scan Computer Diag Imag W/Report Optic Nerve Completed 07/23/2015 36689 Vis Field W/Med Diag;Ext,Gideon Per Completed 07/23/2015 59643 Gonioscopy W/Med Diag Eval Completed 07/23/2015 98524 Exam Comprehensive, New PT Completed 07/23/2015 73679 Cornea Pachymetry, Unilat/Bilat Completed Encounters Type Date [...] am - Scott Haji MD at Main [id number]/03/2018 - Nicholas Bajwa MDB00.52 Herpesviral keratitisComments: Finish current bottle of Valtrex then stopH40.1123 Primary open-angle glaucoma, left eye, severe stageComments:Move up appt with MDMFollow up:within a week iop check with MDM non dilH40.1112 Primary open-angle glaucoma, right eye, moderate stage
== END 2018-09-21 14:16 | disposition home or self-care (01) ==
LOC: ED 10:27
DX: R07.9 Chest pain, unspecified (principal); R20.2 Paresthesia of skin; E78.00 Pure hypercholesterolemia, unspecified; I10 Essential (primary) hypertension; Z87.891 Personal history of nicotine dependence; Z79.899 Other long term (current) drug therapy
CPT/HCPCS: 36415; 71046; 71275; 74174; 80053; 84484; 85025; 85610; 93005; 99283; Q9967